=== PATIENT | female | born 1985 | race African-American/Black ===

== ENCOUNTER 2016-06-11 13:18 | Emergency (ER) | payer OTHER ==
[~2016-06-11 13:18] MED LIST: ALBU2.5I INH; PHEN12.5 PO; ZOFR4TAB3 SL
[2016-06-11] MEDS ORDERED: CALNTAB (13:56)
--- NOTE | 2016-06-11 13:59 | PD ---
HPI Chief Complaint Lower back and abdominal cramping, possible leakage of fluid Date Seen: Jun 11, 2016 Time Seen: 13:35 Travel History International Travel<30 Days: No Contact w/Intl Traveler<30Days: No Known Affected Area: No History of Present Illness HPI 30-year-old 2 para 1 at 33+ weeks gestation who presents today for low back and lower abdominal pain over the past day. She also thought she may be having some fluid leakage. She also expressed concern that she was measuring large for dates at her visit with Dr. Gomez yesterday. She was scheduled for an ultrasound which she states she will not be able to attend due to being out of town next week. She reports good movement, no bleeding, no irritating vaginal discharge. She is uncertain if the pain she is having are contractions. Para: 1 : 2 Miscarriage: 0 : 0 History Past Medical History Narrative Medical Migraine headaches Obstetric History Obstetric History One prior vaginal delivery at 38+ weeks gestation, uncomplicated This has been uncomplicated other than recent size greater than dates Past Surgical History Narrative Surgical Appendectomy Family History Family History: Negative Social History Alcohol Use: No Tobacco Use: No Substance Abuse: No Allergies-Medications (Allergen,Severity, Reaction): Coded Allergies: Contrast Media (Verified Allergy, Severe, Hives, 06/11/16) Home Meds Reported Medications Vitamin (Calna)1 Tab Tab 06/11/16 Albuterol Sulfate (Resp: Albuterol 2.5 Mg/3 Ml Neb)2.5 Mg/3 Ml Nebu2.5 Mg INH Q4H PRN (ASTHMA) 01/29/14 Discontinued Scripts Ondansetron (Zofran ODT)4 Mg Tab4 Mg SL Q6 #10 TAB FOR NAUSEA/VOMITING Prov:Gaston Michele MD 02/26/14 Promethazine Hcl 12.5 Mg Tab12.5 Mg PO Q6 PRN (NAUSEA OR VOMITING) #7 TAB FOR NAUSEA Prov:NANCY MATTHEWS M.D. 01/29/14 Review of Systems Except as stated in HPI: all other systems reviewed are Neg Physical Exam Narrative GENERAL: Well-nourished, well-developed patient. SKIN: Warm and dry. HEAD: Normocephalic and atraumatic. EYES: No scleral icterus. No injection or drainage. ENT: No nasal drainage noted. Mucous membranes pink. Airway patent. NECK: Supple, trachea midline. No JVD. CARDIOVASCULAR: Regular rate and rhythm without murmurs, gallops, or rubs. RESPIRATORY: Breath sounds equal bilaterally. No accessory muscle use. BREASTS: Bilateral exam showed no masses , no retractions, no nipple discharge. ABDOMEN/GI: Abdomen soft, non-tender, bowel sounds present, no rebound, no guarding Gravid to [-] weeks size Fundal Height: [-36] GENITOURINARY: External Genitalia: intact and normal in appearance BUS glands: [Negative-] Cervix: [-] Dilatation: [Closed-] Effacement: [Long-] Station: [High-] Presentation: [-] Membranes: [intact, negative amnio sure] Uterine Contractions: [-None] FHT's: Category: [-1] Baseline: [-] Reactive: [Yes-] Variability: [-] Decels: [-] EXTREMITIES: No cyanosis or edema. BACK: Nontender without obvious deformity. No CVA tenderness. NEUROLOGICAL: Awake and alert. Motor and sensory grossly within normal limits. Five out of 5 muscle strength in all muscle groups. Normal speech. Data Data Vital Signs Reviewed: Yes Orders Urinalysis MDM Medical Record Reviewed: Yes Narrative Course / MDM Assessment: 33+ week intrauterine with mild nonspecific lower abdominal and low back pain Plan: Urinalysis is negative, amnio sure is negative, no evidence of contractions Continue routine care Follow up for ultrasound for size greater than dates Diagnosis Diagnosis: Primary Impression: 33 weeks gestation of Additional Impression: Labor, false (Estevan-Gaffney), antepartum Disposition: 01 DISCHARGE HOME Elliott Erickson MD Jun 11, 2016 13:59
[2016-06-11 14:23] VITALS: BP 109/64; PULSE 76
[2016-06-11 14:30] VITALS: RESP 18
[2016-06-11 15:08] LABS: BACTERIA, URINE RARE /hpf; BLOOD, URINE NEG (NEG); COMMENT (UR) CULT NOT INDICATED; CULTURE IF INDICATED CULT NOT INDICATED; GLUCOSE,URINE NEG (NEG); KETONE, URINE NEG (NEG); NITRITE,URINE NEG (NEG); PH, URINE 7.5 (5.0-8.5); SQUAMOUS EPITHELIAL CELL URINE 1 /hpf (0-5); URINE COLOR LIGHT-YELLOW (YELLW/STRAW)
== END 2016-06-11 15:28 | disposition home or self-care (01) ==
LOC: HOBED 13:18
DX: O47.03 False labor before 37 completed weeks of gestation, third trimester (principal); O26.893 Other specified pregnancy related conditions, third trimester; M54.5 Low back pain; R10.30 Lower abdominal pain, unspecified; Z3A.33 33 weeks gestation of pregnancy
CPT/HCPCS: 59025; 81001; 84112

== ENCOUNTER 2016-07-22 01:11 | Inpatient (IN) | payer OTHER ==
[2016-07-22] VITALS (76 sets, daily range): BP systolic 100–176; BP diastolic 49–122; PULSE 59–144; RESP 18–22; TEMP 98.1–98.7
[~2016-07-22] VITALS: Ht 154.9 cm; Wt 62.6 kg
[~2016-07-22 01:11] MED LIST changes: +CALNTAB; -PHEN12.5 PO; -ZOFR4TAB3 SL
[2016-07-22] MEDS ORDERED: LACTATED RINGER'S 1000 ML INJ 1,000 ML IV PRN (01:44)
[2016-07-22] MEDS ORDERED: LACTATED RINGER'S 1000 ML INJ 1,000 ML IV SCH (01:44)
--- NOTE | 2016-07-22 01:44 | HHI.HP ---
HPI Chief Complaint Water broke contractions started Date Seen: Jul 22, 2016 Travel History International Travel<30 Days: No Contact w/Intl Traveler<30Days: No Known Affected Area: No History of Present Illness HPI This patient is 30-year-old black female at 39 weeks presents with gross rupture membranes and active labor. No bleeding noted heart rate tracing is reactive contractions seen on the monitor. She is followed by Dr. Mcnally for care Dr. [employer] parts sales representative for tonight Para: 1 : 2 History Obstetric History Obstetric History One vaginal delivery Social History Alcohol Use: No Tobacco Use: No Substance Abuse: No Allergies-Medications (Allergen,Severity, Reaction): Coded Allergies: Contrast Media (Verified Allergy, Severe, Hives, 06/11/16) Home Meds Reported Medications Vitamin (Calna)1 Tab Tab 06/11/16 Albuterol Sulfate (Resp: Albuterol 2.5 Mg/3 Ml Neb)2.5 Mg/3 Ml Nebu2.5 Mg INH Q4H PRN (ASTHMA) 01/29/14 Review of Systems General / Constitutional: No: Fever, Weight Gain, Chills, Other Eyes: No: Diploplia, Blurred Vision, Visual changes, Pain, Photophobia HENT: No: Headaches, Vertigo, Lightheadedness Cardiovascular: No: Irregular Rhythm, Chest Pain or Discomfort, Palpitations, Tachycardia, Syncope, Varicosities, Edema, Cyanosis Respiratory: No: Cough, Short of Breath, Other Gastrointestinal: No: Nausea, Vomiting, Diarrhea Genitourinary: No: Decreased Urinary Output, Oliguria Musculoskeletal: No: Limited ROM, Weakness, Cramping, Edema, Pain Skin: No Rash, No Itching, No Dryness, No Lumps, No Change in Pigmentation, No Change in Nails, No Alopecia, No Lesions Neurologic: No: Weakness, Dizziness, Syncope, Focal Abnormalities, Coordination Problem, Headache, Slurred Speech, Seizures Psychiatric: No: Depression, Suicidal Ideations, Homicidal Ideation Endocrine: No: Heat Intolerance, Cold Intolerance, Polydipsia, Polyuria, Other Physical Exam Narrative GENERAL: Well-nourished, well-developed patient. SKIN: Warm and dry. HEAD: Normocephalic and atraumatic. EYES: No scleral icterus. No injection or drainage. ENT: No nasal drainage noted. Mucous membranes pink. Airway patent. NECK: Supple, trachea midline. No JVD. CARDIOVASCULAR: Regular rate and rhythm without murmurs, gallops, or rubs. RESPIRATORY: Breath sounds equal bilaterally. No accessory muscle use. BREASTS: Bilateral exam showed no masses , no retractions, no nipple discharge. ABDOMEN/GI: Abdomen soft, non-tender, bowel sounds present, no rebound, no guarding Gravid to [39-] weeks size Fundal Height: [-39] GENITOURINARY: External Genitalia: intact and normal in appearance BUS glands: [-] Cervix: [-] Dilatation: [-6] Effacement: [-90] Station: [-2] Presentation: [vtx-] Membranes: ruptured] Uterine Contractions: [reg-] FHT's: Category: [-1] Baseline: [144-] Reactive: [yes-] Variability: [mod-] Decels: [-none] EXTREMITIES: No cyanosis or edema. BACK: Nontender without obvious deformity. No CVA tenderness. NEUROLOGICAL: Awake and alert. Motor and sensory grossly within normal limits. Five out of 5 muscle strength in all muscle groups. Normal speech. Data Data Orders Ob (2e) Additional Admit Info (07/22/16 01:17) Assessment/Plan Assessment and Plan This patient is 30-year-old white female at [address] Gomez who presents with gross ruptured membranes in active labor cervix is 6 cm dilated 90% effaced. heart rate tracing is reactive contractions noted on the monitor. Dr. Gomez's patient's OB provider Dr. [employer] sales representative for her tonight Kumar Harmon II, MD Jul 22, 2016 01:44
[2016-07-22] MEDS ORDERED: CITRIC ACID-SODIUM CITRATE LIQ 30 ML UDC PO SCH (01:45)
[2016-07-22] MEDS ORDERED: LIDOCAINE HCL 1% 50 ML VIAL INFIL PRN (01:45)
[2016-07-22] MEDS ORDERED: OXYTOCIN 30 UNITS-500ML PREMIX 500 ML IV ONE (01:45)
[2016-07-22] MEDS ORDERED: MINERAL OIL 10 ML VIAL TOPICAL PRN (01:45)
[2016-07-22] MEDS ORDERED: LIDOCAINE HCL 1% 50 ML VIAL I-DERMAL PRN (01:45)
[2016-07-22] MEDS ORDERED: SODIUM CHLORID 0.9% 500 ML INJ 500 ML IV PRN (01:45)
[2016-07-22 01:52] LABS: AUTOMATED NEUTROPHIL # 4.9 TH/MM3 (1.8-7.7); BASOPHIL % 0.4 % (0.0-2.0); EOSINOPHIL # 0.1 TH/MM3 (0-0.4); EOSINOPHIL % 1.3 % (0.0-4.0); HEMATOCRIT 36.3 % (35.0-46.0); LYMPH % 25.8 % (9.0-44.0); LYMPHOCYTE # 1.9 TH/MM3 (1.0-4.8); MEAN CELL VOLUME 80.5 FL (80.0-100.0); MONO % 6.1 % (0.0-8.0); NEUT % 66.4 % (16.0-70.0); PLATELET COUNT 135 TH/MM3 (150-450); RED BLOOD COUNT 4.51 MIL/MM3 (4.00-5.30); RED CELL DISTRIBUTION WIDTH 15.8 % (11.6-17.2); WHITE BLOOD COUNT 7.3 TH/MM3 (4.0-11.0)
[2016-07-22 01:54] LABS: HEMO FLAGS DIFF FINAL
[2016-07-22] MEDS ORDERED: fentaNYL 2MCG-BUPIV 0.125% INJ 100 ML ONE ×2 (01:54→09:53)
[2016-07-22] MEDS ORDERED: BUPIVACAINE HCL PF 0.25% 10 ML VIAL ONE (02:02)
[2016-07-22] MEDS ORDERED: SODIUM CHLOR 0.9% 1000 ML INJ 1,000 ML IV PRN (02:04)
[2016-07-22 02:05] LABS: BACTERIA, URINE RARE /hpf; BLOOD, URINE MOD (NEG); COMMENT (UR) CULT NOT INDICATED; CULTURE IF INDICATED CULT NOT INDICATED; GLUCOSE,URINE NEG (NEG); KETONE, URINE 40 mg/dL (NEG); MUCUS URINE FEW /lpf (OCC); NITRITE,URINE NEG (NEG); SQUAMOUS EPITHELIAL CELL URINE 2 /hpf (0-5); URINE COLOR YELLOW (YELLW/STRAW)
[2016-07-22] MEDS ORDERED: ACYC400T PO (02:21)
--- NOTE | 2016-07-22 10:38 | PD.OB.DELI ---
Delivery Date: Jul 22, 2016 Anesthesia: Epidural, Lidocaine local to perineum Episiotomy: None Vaginal Delivery: Vacuum (delivered from +3 station with 1 contraction and 1 pull) Presentation: Occiput anterior Nuchal Cord: None Delayed cord clamping (45 sec): Yes Infant: Male, Single One Minute : 8 Five Minute : 9 Weight: 7-8 Care: Suctioned, Spontaneous crying, Responded to stimulation Placenta: Spontaneous delivery, Intact, 3 vessel cord Laceration: Perineal laceration, 3 deg (repaired with 2-0 and 3-0 chromic in usual fashion) Tyrese Gomez MD Jul 22, 2016 10:38
[2016-07-22] MEDS ORDERED: ePHEDrine/NS 25 MG/5 ML SYR IV PRN (11:45)
[2016-07-22] MEDS ORDERED: fentaNYL 2MCG-BUPIV 0.125% 100 ML EPIDURAL SCH (11:45)
[2016-07-22] MEDS ORDERED: DO NOT ADMINISTER ANTICOAGULANTS XX PRN (11:45)
[2016-07-22] MEDS ORDERED: NO SYSTEM NARCOTICS XX PRN (11:45)
[2016-07-22] MEDS ORDERED: WITCH HAZEL 50%/GLYCERIN 12.5% 40 PAD JAR TOPICAL PRN (12:15)
[2016-07-22] MEDS ORDERED: ZOLPIDEM TARTRATE 5 MG TAB PO PRN (12:15)
[2016-07-22] MEDS ORDERED: SODIUM CHLORIDE 0.9% FLUSH 10 ML FLUSH IV FLUSH PRN (12:15)
[2016-07-22] MEDS ORDERED: ALUMINUM/MAGNESIUM/SIMETH 30 ML CUP PO PRN (12:15)
[2016-07-22] MEDS ORDERED: ONDANSETRON ODT 4 MG TAB PO PRN (12:15)
[2016-07-22] MEDS ORDERED: BENZOCAINE 20% TOPICAL SPRAY 60 ML CAN TOPICAL PRN (12:15)
[2016-07-22] MEDS: ACETAMINOPHEN 325 MG TAB PO PRN ×2 (13:03→19:17)
[2016-07-22] MEDS: DOCUSATE SODIUM 50 MG/SENNA 8.6 MG TAB PO PRN (13:03)
[2016-07-22] MEDS: IBUPROFEN 600 MG TAB PO PRN ×2 (13:03→19:17)
[2016-07-22] MEDS ORDERED: MEASLES, MUMPS, RUBELLA VACCINE 0.5 ML VIAL SQ ONE (16:00)
[2016-07-22] MEDS ORDERED: DIPHTH/TETANUS/ACEL PERTUSSIS (BOOSTER) 0.5 ML VIAL/PFS IM ONE (16:00)
[2016-07-22] MEDS ORDERED: SODIUM CHLORIDE 0.9% FLUSH 10 ML FLUSH IV FLUSH SCH (21:00)
[2016-07-22] MEDS ORDERED: oxyCODONE/ACETAMINOPHEN 5 MG/325 MG TAB PO PRN ×2 (22:15)
[2016-07-23 08:00] VITALS: BP 124/81; PULSE 70; RESP 18; TEMP 98.4
[2016-07-23] MEDS: DOCUSATE SODIUM 50 MG/SENNA 8.6 MG TAB PO PRN (08:19)
[2016-07-23] MEDS: IBUPROFEN 600 MG TAB PO PRN (08:19)
[2016-07-23] MEDS ORDERED: OXYC1TAB63 PO (08:54)
[2016-07-23] MEDS ORDERED: IBUP-232 PO (08:54)
--- NOTE | 2016-07-23 08:55 | HHI.DCPOC ---
Discharge Care Plan Diagnosis: (1) Spontaneous vaginal delivery Your Health Problems Are: Vaginal delivery Report Symptoms to Your Doctor -Temperate above 100.5 degrees -Redness, of incision or excessive or foul smelling drainage -Unusual pain or calf pain -Increased vaginal bleeding -Painful or difficulty urinating -Feelings of extreme sadness or anxiety after 2 weeks Goals to Promote Your Health * To prevent worsening of your condition and complications * To maintain your health at the optimal level Directions to Meet Your Goals Take your medications as prescribed Follow your dietary instruction Follow activity as directed Ensure plenty of rest for recovery Drink fluids for hydration Keep your appointments as scheduled Take your immunizations and boosters as scheduled If your symptoms worsen call your PCP, if no PCP go to Urgent Care Center or Emergency Room Smoking is Dangerous to Your Health. Avoid second hand smoke Call the 24-hour crisis hotline for domestic abuse at Tyrese Gomez MD Jul 23, 2016 08:55
--- NOTE | 2016-07-23 08:59 | HHI.OB ---
Subjective Post Day: 1 Remarks pain controlled, mod lochia, brooklynn po, +void/flatus. wants to go home. Objective Vitals/I&O Vital Signs Date Time Temp Pulse Resp B/P Pulse Ox O2 Delivery O2 Flow Rate FiO2 07/22/16 19:20 98.7 76 18 120/69 07/22/16 14:00 98.1 61 18 121/77 07/22/16 11:00 19 07/22/16 11:00 60 137/85 07/22/16 10:46 73 128/93 07/22/16 10:45 18 07/22/16 10:40 98.1 07/22/16 10:38 71 134/69 07/22/16 09:30 66 116/72 Objective Remarks GENERAL: Well-nourished, well-developed patient. CARDIOVASCULAR: Regular rate and rhythm without murmurs, gallops, or rubs. RESPIRATORY: Breath sounds equal bilaterally. No accessory muscle use. ABDOMEN/GI: Abdomen soft, non-tender. Fundus: Firm, non-tender at umbilicus. GENITOURINARY: Light to moderate bleeding. EXTREMITIES: No cyanosis or edema, non-tender, without signs of DVT. Medications and IVs Current Medications Medications (Trade) Dose Ordered Sig/Lupe Route Start Time Stop Time Status Last Admin Lactated Ringer's 1,000 ml @ 125 mls/hr Q8H IV 07/22/16 01:44 Lactated Ringer's 1,000 ml @ 3,000 mls/hr Q20M PRN IV 07/22/16 01:44 Sodium Chloride 500 ml @ 1,000 mls/hr ONCE PRN IV 07/22/16 01:45 07/24/16 01:44 (NS 1000 ml Inj) 1,000 ml @ 100 mls/hr Q10H PRN IV 07/22/16 02:04 (Muri-Lube Oil) 10 ml UNSCH PRN TOPICAL 07/22/16 01:45 Miscellaneous Information No systemic narcotics to be given except... UNSCH PRN XX 07/22/16 11:45 07/23/16 11:44 Miscellaneous Information DO NOT ADMINISTER ANY ANTICOAGUL... UNSCH PRN XX 07/22/16 11:45 07/23/16 11:44 (fentaNYL 2MCG-BUPIV 0.125% INJ) 100 ml @ 0 mls/hr TITRATE EPIDURAL 07/22/16 11:45 (ePHEDrine/NS 25 MG/5 ML SYR) 10 mg UNSCH PRN IV 07/22/16 11:45 07/23/16 11:44 (NS Flush) 2 ml BID IV FLUSH 07/22/16 21:00 (NS Flush) 2 ml UNSCH PRN IV FLUSH 07/22/16 12:15 (Tylenol) 650 mg Q4H PRN PO 07/22/16 12:15 07/22/16 19:17 (Motrin) 600 mg Q6H PRN PO 07/22/16 12:15 07/23/16 08:19 (Americaine 20% Top Spr) 1 spray Q4H PRN TOPICAL 07/22/16 12:15 07/22/16 13:04 (Tucks Pads) 1 applic QID PRN TOPICAL 07/22/16 12:15 07/22/16 13:04 (Anu-Colace) 2 tab Q12H PRN PO 07/22/16 12:15 07/23/16 08:19 (Ambien) 5 mg HS PRN PO 07/22/16 12:15 (Mag-Al Plus Susp Liq) 15 ml Q8H PRN PO 07/22/16 12:15 (Zofran Odt) 4 mg Q6H PRN PO 07/22/16 12:15 (Percocet 5-325 Mg) 1 tab Q4H PRN PO 07/22/16 22:15 07/22/16 23:02 (Percocet 5-325 Mg) 2 tab Q4H PRN PO 07/22/16 22:15 07/23/16 08:20 Assessment/Plan Assessment and Plan routine pp care d/c home today if baby okay to go Tyrese Gomez MD Jul 23, 2016 08:59
== END 2016-07-23 17:26 | disposition home or self-care (01) | DRG 775 ==
LOC: HOBED 01:11 → H2EB 01:27 → H1EA 12:25
PROVIDERS: ADMIT Obstetrics & Gynecology; ATTEND Obstetrics & Gynecology
PROC: 0DQR0ZZ Repair Anal Sphincter, Open Approach (ICD-10-PCS; principal; 2016-07-22)
PROC: 10D07Z6 Extraction of Products of Conception, Vacuum, Via Natural or Artificial Opening (ICD-10-PCS; 2016-07-22)
PROC: 3E0R3CZ (ICD-10-PCS; 2016-07-22)
PROC: 00HU33Z Insertion of Infusion Device into Spinal Canal, Percutaneous Approach (ICD-10-PCS; 2016-07-22)
DX: O71.5 Other obstetric injury to pelvic organs (principal); Z37.0 Single live birth; Z3A.39 39 weeks gestation of pregnancy
CPT/HCPCS: 81001; 85025; 86900; 86901; 99285